=== PATIENT | female | born 1965 | race Two or more races ===

== ENCOUNTER 2023-09-13 08:12 | Day surgery (SDC) | payer OTHER ==
[~2023-09-13] VITALS: Ht 167.6 cm; Wt 60.3 kg
[2023-09-13] MEDS ORDERED: BUPIVACAINE LIPOSOME/PF 266 MG/20 ML VIAL IJ ONE (12:15)
[2023-09-13] MEDS ORDERED: DIBUCAINE 30 GM TUBE RECTAL ONE (12:15)
[2023-09-13] MEDS ORDERED: HEMOSTATIC MATRIX 1 KIT KIT TOP ONE (12:15)
[2023-09-13] MEDS ORDERED: POVIDONE-IODINE 118 ML BOTT TOP ONE (12:30)
[2023-09-13] MEDS ORDERED: METRONIDAZOLE/SODIUM CHLORIDE 500 MG/100 ML PIGGYBACK IV ONE (12:30)
[2023-09-13] MEDS ORDERED: TRIAMCINOLONE ACETONIDE 40 MG/ML VIAL IJ ONE (14:15)
== END 2023-09-13 17:10 | disposition home or self-care (01) ==
LOC: CIR.AMB 08:12
PROVIDERS: ATTEND Colon & Rectal Surgery
DX: K62.2 Anal prolapse (principal); K64.2 Third degree hemorrhoids; K64.4 Residual hemorrhoidal skin tags; L91.0 Hypertrophic scar